=== PATIENT | female | born 1955 | race Hispanic/Latino ===

== ENCOUNTER 2016-11-01 10:03 | Outpatient (CLI) | payer MEDICARE ==
--- NOTE | 2016-11-01 10:59 | Mammography Report ---
BILATERAL DIGITAL SCREENING MAMMOGRAM with CAD: 11/01/16 10:03:00 CLINICAL: Routine screening. COMPARISON:06/15/15 FINDINGS: The examination was performed with the patient in a wheelchair. The breasts are heterogeneously dense, which may obscure small masses. No mass, architectural distortion or suspicious calcifications. IMPRESSION: No mammographic evidence of malignancy. BI-RADS CATEGORY: 1 - - Negative RECOMMENDATION: Routine mammographic screening in one year. COMMENT: Patient follow-up letters are generated by our [employer] application.
== END 2016-11-01 10:04 | disposition home or self-care (01) ==
LOC: SPVWC 10:03
PROVIDERS: ATTEND Internal Medicine
DX: Z12.31 Encounter for screening mammogram for malignant neoplasm of breast (principal)
CPT/HCPCS: 77067; G0202

== ENCOUNTER 2017-05-03 09:37 | Outpatient (CLI) | payer MEDICARE ==
--- NOTE | 2017-05-03 11:58 | Fluoroscopy Report ---
Modified barium swallow under video fluoroscopy: History: Choking. Findings: There is no anatomic obstruction noted to the flow of thin liquids and semisolid and solid food. Aspiration was noted. Additional findings will be provided by speech therapist. Impression: Findings as detailed above.
== END 2017-05-03 09:38 | disposition home or self-care (01) ==
LOC: PT 09:37
PROVIDERS: ATTEND Internal Medicine
DX: R13.12 Dysphagia, oropharyngeal phase (principal)
CPT/HCPCS: 74230; 92611; G8996; G8997; G8998